=== PATIENT | male | born 1995 | race Caucasian/White ===

== ENCOUNTER 2022-02-22 11:56 | Emergency (ER) | payer BC, SELFPAY ==
[2022-02-22 12:13] VITALS: BP 124/58; PULSE 65; RESP 16; TEMP 36.6; O2SAT 99
== END 2022-02-22 13:21 | disposition left against medical advice (07) ==
PROVIDERS: Emergency Provider Family Medicine
DX: Z53.21 Procedure and treatment not carried out due to patient leaving prior to being seen by health care provider (principal)
CPT/HCPCS: 99283